=== PATIENT | female | born 1955 | race Caucasian/White ===

== ENCOUNTER 2024-08-24 21:02 | Emergency (ER) | payer MEDICARE, OTHER ==
[2024-08-24] MEDS ORDERED: ONDANSETRON 4 MG/2 ML VIAL ONE (21:45)
[2024-08-25] MEDS ORDERED: METRONIDAZOLE 500 MG/NS 100ML 100 ML IV ONE (01:38)
[2024-08-25] MEDS ORDERED: HYDROMORPHONE 1 MG/1 ML DISP.SYRIN ONE (02:11)
[2024-08-25] MEDS ORDERED: LORAZEPAM 2 MG/1 ML VIAL ONE (02:11)
== END 2024-08-24 21:03 | disposition home or self-care (01) ==
LOC: ER 21:02
DX: Z53.21 Procedure and treatment not carried out due to patient leaving prior to being seen by health care provider (principal)
CPT/HCPCS: J1171; J1956; J2060; J2405; J3490